=== PATIENT | female | born 1960 | race Caucasian/White ===

== ENCOUNTER 2017-01-04 12:14 | Emergency (ER) | payer BC ==
[~2017-01-04] VITALS: Ht 162.6 cm; Wt 58.0 kg
[2017-01-04 13:00] VITALS: BP 151/85; RESP 20; TEMP 98.2; O2SAT 98
[2017-01-04] MEDS ORDERED: TETANUS/DIPHTHERIA TOXOID ADULT 0.5 ML VIAL IM ONE (14:00)
--- NOTE | 2017-01-04 14:01 | PD ---
HPI Chief Complaint: Skin Problem Time Seen by Provider: 13:47 Travel History International Travel<30 days: No Contact w/Intl Traveler<30days: No Traveled to known affect area: No History of Present Illness HPI 56-year-old female presents to the emergency room for evaluation after stepping on a nail last night. Patient was cleaning up after a cane and stepped on a large amrit nail that went through her boot. States she felt like it hit the bone. She had to pry it out. States it bled significantly and then she washed it with hydrogen peroxide. Patient presents requesting tetanus shot stating that she has not had one in greater than 5 years. Denies fever, chills, nausea , vomiting, redness, or drainage. PFSH Past Medical History Medical History: Denies Significant Hx Diminished Hearing: No Immunizations Current: Yes Tetanus Vaccination: > 5 Years Influenza Vaccination: Yes ?: Not Menopausal: Yes Past Surgical History Surgical History: No Previous Surgery Social History Alcohol Use: Yes Tobacco Use: Yes Substance Use: No Allergies-Medications (Allergen,Severity, Reaction): Coded Allergies: No Known Allergies (Unverified , 01/04/17) Reported Meds & Prescriptions Reported Meds & Active Scripts Active No Active Prescriptions or Reported Medications Review of Systems Except as stated in HPI: all other systems reviewed are Neg Physical Exam Narrative GENERAL: Well-nourished, well-developed female in no acute distress. Afebrile. Ambulatory. SKIN: Focused skin assessment warm/dry. There is a 2 mm puncture wound to the right plantar foot over the first MTP joint. There is very mild flashlight surrounding erythema without lymphangitis. No spontaneous drainage. No fluctuance, induration, or increased warmth. HEAD: Normocephalic. EYES: No scleral icterus. No injection or drainage. NECK: Supple, trachea midline. No JVD or lymphadenopathy. CARDIOVASCULAR: Regular rate and rhythm without murmurs, gallops, or rubs. RESPIRATORY: Breath sounds equal bilaterally. No accessory muscle use. MUSCULOSKELETAL: No cyanosis, or edema. Full range motion of the great toe. Less than 2 second capillary refill distally. Data Data Last Documented VS Vital Signs Date Time Temp Pulse Resp B/P (MAP) Pulse Ox O2 Delivery O2 Flow Rate FiO2 01/04/17 13:00 98.2 20 151/85 (107) 98 Orders Orders Tetanus/Diphtheria Tox Adult (Tetanus/Di (01/04/17 14:00) [facility] Medical Decision Making Medical Screen Exam Complete: Yes Emergency Medical Condition: Yes Medical Record Reviewed: Yes Differential Diagnosis tetanus prophylaxis, cellulitis, abscess Narrative Course 56-year-old female presents to the emergency room for evaluation after stepping on a amrit nail last night. Patient states nail went through her boot. She had to pry it out of her foot and it bled significantly. She has been ambulatory since then. Right foot has full range of motion without significant pain. Physical exam reveals a 2 mm puncture wound on the plantar first MTP joint. There is mild erythema surrounding the wound but no lymphangitis. Tetanus was updated in the ER. Patient will be discharged with prescriptions for Cipro and Bactrim and told to follow-up with a primary care physician or return for worsening symptoms. She understands and agrees to plan. Diagnosis Primary Impression: Puncture wound of plantar aspect of foot Qualified Codes: S91.331A - Puncture wound without foreign body, right foot, initial encounter Referrals: Primary Care Physician Additional Instructions: Rest and drink plenty of fluids. Take Bactrim as directed, until gone. Take Cipro as directed, until gone. Follow up with a primary care physician. Return to emergency room for worsening symptoms, as discussed. Med/Other Pt SpecificInfo: Prescription(s) given Scripts No Active Prescriptions or Reported Meds Disposition: 01 DISCHARGE HOME Condition: Stable Nohelia Khalil Jan 04, 2017 14:01
[2017-01-04] MEDS ORDERED: BACT800T5 PO (14:03)
[2017-01-04] MEDS ORDERED: CIPR750T2 PO (14:03)
== END 2017-01-04 14:11 | disposition home or self-care (01) ==
LOC: PHED 12:14
DX: S91.331A Puncture wound without foreign body, right foot, initial encounter (principal); W45.0XXA Nail entering through skin, initial encounter
CPT/HCPCS: 90471; 90714